=== PATIENT | female | born 1955 | race Caucasian/White ===

== ENCOUNTER → 2017-06-06 | Outpatient (CLI) | payer OTHER ==
--- NOTE | 2017-06-06 18:42 | WOMENS IMAGING REPORT ---
EXAM DESCRIPTION: BILAT SCREENING MAMMO W/CAD COMPLETED DATE/TIME: 06/06/2017 4:37 pm REASON FOR STUDY: ROUTINE SCREENING; Z12.31 Z12.31 ENCNTR SCREEN MAMMOGRAM FOR MALIGNANT NEOPLASM O F HUI COMPARISON: Multiple since 2008 TECHNIQUE: Standard craniocaudal and mediolateral oblique views of each breast recorded using digita l acquisition. LIMITATIONS: None. FINDINGS: No masses, calcifications or architectural distortion. No areas of suspicion. Read with the assistance of CAD. .[facility] - R2 Cenova Version 1.3 .[facility] Imaging - R2 Cenova Version 1.3 .[facility] Imaging - R2 Cenova Version 2.4 .[facility] [place] - R2 Cenova Version 2.4 .[facility] - R2 Swine Extension Field Specialist Version 9.2 IMPRESSION: NORMAL MAMMOGRAM. BIRADS 1. BREAST DENSITY: b. There are scattered areas of fibroglandular density. BIRAD: 1 NEGATIVE RECOMMENDATION: ROUTINE SCREENING Please consider bilateral screening tomosynthesis in May 2018 COMMENT: The patient has been notified of the results by letter per MQSA requirements. Additional no tification policies are in place for contacting patient with suspicious or incomplete findings. Quality ID #[id number]: The [employer] recommends an annual screening mammogram for women aged 40 years or over. This facility utilizes a reminder system to ensure that all patients receive reminder letters, and/or direct phone calls for appointments. This includes reminders for routine scr eening mammograms, diagnostic mammograms, or other Breast Imaging Interventions when appropriate. Th is patient will be placed in the appropriate reminder system. The [employer] (ACR) has developed recommendations for screening MRI of the breast s in certain patient populations, to be used in conjunction with mammography. Breast MRI surveillanc e may be appropriate for women with more than 20% lifetime risk of developing breast cancer as deter mined by genetic testing, significant family history of the disease, or history of mantle radiation f or Hodgkins Disease. ACR Practice Guidelines 2008. TECHNICAL DOCUMENTATION: FINDING NUMBER: (1) ASSESSMENT: (1) JOB ID: [id number] [employer]- All Rights Reserved
== END ==
LOC: WI 15:14
PROVIDERS: ATTEND Specialist
DX: Z12.31 Encounter for screening mammogram for malignant neoplasm of breast (principal)
CPT/HCPCS: 77067; G0202

== ENCOUNTER → 2018-06-11 | Outpatient (CLI) | payer OTHER ==
--- NOTE | 2018-06-11 16:15 | WOMENS IMAGING REPORT ---
EXAM DESCRIPTION: BILAT SCREENING MAMMO W/CAD COMPLETED DATE/TIME: 06/11/2018 3:59 pm REASON FOR STUDY: BILATERAL SCREENING MAMMO/Z12.31 Z12.31 ENCNTR SCREEN MAMMOGRAM FOR MALIGNANT ZACK PLASM OF HUI COMPARISON: 06/06/2017 and 05/29/2016. TECHNIQUE: Standard craniocaudal and mediolateral oblique views of each breast recorded using digita l acquisition. LIMITATIONS: None. FINDINGS: No masses, calcifications or architectural distortion. No areas of suspicion. Read with the assistance of CAD. .[facility] - R2 Cenova Version 1.3 .[facility] Imaging - R2 Cenova Version 1.3 .[facility] Imaging - R2 Cenova Version 2.4 .[facility] [place] - R2 Cenova Version 2.4 .[facility] - R2 Administrative Specialist Version 9.2 IMPRESSION: NORMAL MAMMOGRAM. BIRADS 1. BREAST DENSITY: b. There are scattered areas of fibroglandular density. BIRAD: 1 NEGATIVE RECOMMENDATION: ROUTINE SCREENING COMMENT: The patient has been notified of the results by letter per MQSA requirements. Additional no tification policies are in place for contacting patient with suspicious or incomplete findings. Quality ID #[id number]: The [employer] recommends an annual screening mammogram for women aged 40 years or over. This facility utilizes a reminder system to ensure that all patients receive reminder letters, and/or direct phone calls for appointments. This includes reminders for routine scr eening mammograms, diagnostic mammograms, or other Breast Imaging Interventions when appropriate. Th is patient will be placed in the appropriate reminder system. The [employer] (ACR) has developed recommendations for screening MRI of the breast s in certain patient populations, to be used in conjunction with mammography. Breast MRI surveillanc e may be appropriate for women with more than 20% lifetime risk of developing breast cancer as deter mined by genetic testing, significant family history of the disease, or history of mantle radiation f or Hodgkins Disease. ACR Practice Guidelines 2008. TECHNICAL DOCUMENTATION: FINDING NUMBER: (1) ASSESSMENT: (1) JOB ID: [id number] [employer]- All Rights Reserved Reading location - IP/workstation name: [email or web address]
== END ==
LOC: WI 15:26
PROVIDERS: ATTEND Specialist
DX: Z12.31 Encounter for screening mammogram for malignant neoplasm of breast (principal)
CPT/HCPCS: 77067

== ENCOUNTER → 2019-06-17 | Outpatient (CLI) | payer OTHER ==
--- NOTE | 2019-06-18 12:51 | WOMENS IMAGING REPORT ---
EXAM DESCRIPTION: 3D SCREENING MAMMO BILAT COMPLETED DATE/TIME: 06/17/2019 4:26 pm REASON FOR STUDY: Z12.31 SCREENING MAMMO Z12.31 ENCNTR SCREEN MAMMOGRAM FOR MALIGNANT NEOPLASM OF B RE COMPARISON: 06/11/2018 and 06/06/2017 EXAM PARAMETERS: Standard craniocaudal and mediolateral oblique views of each breast recorded using digital acquisition and breast tomosynthesis. Read with the assistance of CAD. .[facility] - [employer] Computational Biologist Version 9.2 LIMITATIONS: None. FINDINGS: Findings present which are benign by mammographic criteria. No suspicious masses, calcific ations or architectural distortion. Benign mammographic findings may include one or more of the following: Smooth masses, popcorn/rim/coa rse calcifications, asymmetries, post-procedure changes, and lesions with long-standing stability. IMPRESSION: BENIGN MAMMOGRAPHIC FINDINGS. BIRADS 2 BREAST DENSITY: b. There are scattered areas of fibroglandular density. BIRAD: ASSESSMENT: 2 BENIGN FINDING(S) RECOMMENDATION: ROUTINE SCREENING COMMENT: The patient has been notified of the results by letter per [place] requirements. Additional no tification policies are in place for contacting patient with suspicious or incomplete findings. Quality ID #[id number]: The [employer] recommends an annual screening mammogram for women aged 40 years or over. This facility utilizes a reminder system to ensure that all patients receive reminder letters, and/or direct phone calls for appointments. This includes reminders for routine scr eening mammograms, diagnostic mammograms, or other Breast Imaging Interventions when appropriate. Th is patient will be placed in the appropriate reminder system. TECHNICAL DOCUMENTATION: FINDING NUMBER: (1) ASSESSMENT: (1) JOB ID: [id number] [employer]- All Rights Reserved Reading location - IP/workstation name: [email or web address]
== END ==
LOC: WI 15:35
PROVIDERS: ATTEND Specialist
DX: Z12.31 Encounter for screening mammogram for malignant neoplasm of breast (principal)
CPT/HCPCS: 77063; 77067

== ENCOUNTER → 2020-06-25 | Outpatient (CLI) | payer OTHER ==
--- NOTE | 2020-06-25 16:45 | WOMENS IMAGING REPORT ---
EXAM DESCRIPTION: 3D SCREENING MAMMO BILAT IMAGES COMPLETED DATE/TIME: 06/25/2020 3:37 pm REASON FOR STUDY: Z12.31 ENCNTR SCREEN MAMMOGRAM FOR MALIGNANT NEOPLASM OF BREAST Z12.31 ENCNTR SCR EEN MAMMOGRAM FOR MALIGNANT NEOPLASM OF HUI COMPARISON: 2016 and subsequent. EXAM PARAMETERS: Views: Standard craniocaudal and mediolateral oblique views of each breast recorded using digital acquisition and breast tomosynthesis. Read with the assistance of CAD. .[facility] - [employer] Medical Education Manager Version 9.2 LIMITATIONS: None. FINDINGS: No suspicious masses, suspicious calcifications or architectural distortion. No areas of c oncern. IMPRESSION: NEGATIVE MAMMOGRAM. BIRADS 1. BREAST DENSITY: b. There are scattered areas of fibroglandular density. BIRAD: ASSESSMENT: 1 NEGATIVE RECOMMENDATION: ROUTINE SCREENING COMMENT: The patient has been notified of the results by letter per MQSA requirements. Additional no tification policies are in place for contacting patient with suspicious or incomplete findings. Quality ID #[id number]: The [employer] recommends an annual screening mammogram for women aged 40 years or over. This facility utilizes a reminder system to ensure that all patients receive reminder letters, and/or direct phone calls for appointments. This includes reminders for routine scr eening mammograms, diagnostic mammograms, or other Breast Imaging Interventions when appropriate. Th is patient will be placed in the appropriate reminder system. TECHNICAL DOCUMENTATION: FINDING NUMBER: (1) ASSESSMENT: (1) JOB ID: [id number] [employer]- All Rights Reserved Reading location - IP/workstation name: [email or web address]
== END ==
LOC: WI 15:15
PROVIDERS: ATTEND Specialist
DX: Z12.31 Encounter for screening mammogram for malignant neoplasm of breast (principal)
CPT/HCPCS: 77063; 77067